=== PATIENT | female | born 1930 | race Caucasian/White ===

== ENCOUNTER 2017-01-18 16:24 | Observation (INO) ==
[2017-01-18 17:41] LABS: Basophils % 0.6 %; Eosinophils # 0.3 K/mcL (0.0-0.6); Eosinophils % 4.4 %; Hematocrit 34.4 % (35.3-44.9); Hemoglobin 11.5 g/dL (11.5-15.4); Immature Granulocytes % 0.2 % (0-4); Immature Platelets 3.2 % (1.1-6.1); Lymphocytes # 1.9 K/mcL (0.6-4.6); Lymphocytes % 30.7 %; Mean Corpuscular HGB Conc 33.4 g/dL (31.6-35.5); Mean Corpuscular Hemoglobin 31.4 pg (28.0-33.3); Mean Platelet Volume 10.2 fL (9.4-12.4); Monocytes # 0.5 K/mcL (0.0-1.3); Monocytes % 8.1 %; Neutrophils # 3.5 K/mcL (1.6-8.9); Platelet Count 255 K/mcL (140-400); Red Blood Count 3.66 M/mcL (3.82-4.97); Red Cell Distribution Width 12.2 % (11.5-14.5)
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
[2017-01-18 17:55] LABS: BUN/Creatinine Ratio 18 (6-26); Blood Urea Nitrogen 18 mg/dL (7-20); Calcium 9.1 mg/dL (8.6-10.8); Carbon Dioxide 27 mEq/L (19-29); Chloride 104 mEq/L (98-109); Glucose 96 mg/dL (70-99); Osmolality,Calculated 288 (280-300); Potassium 3.7 mEq/L (3.5-4.5); Sodium 138 mEq/L (136-145); eGFR For African Americans > 60 (> 60); eGFR For Non-African Americans 53 (> 60)
--- NOTE | 2017-01-18 18:41 | Emergency Department Note ---
START Narrative - START START: I did see the patient and spoke with her and she does have chest pain and shortness of breath that started this morning. I did review the EKG which shows a paced rhythm. The patient has a negative CT scan of the chest and her troponin and BNP are negative. Will be admitted for further cardiac evaluation. Does have significant risk. 1840 I examined this patient and my medical decision-making was reviewed with the SOLID DIE CUTTER/PA/Advanced Practice Nurse/Resident Physician. I agree with the documented findings, disposition and treatment plan as described except to the extent set forth below.
[2017-01-18] MEDS ORDERED: Aspirin 325 MG TABLET PO ONE (20:46)
[2017-01-18] MEDS ORDERED: Naloxone 0.4 MG/ML INJ IVP PRN (23:12)
[2017-01-18] MEDS ORDERED: Acetaminophen 325 MG TABLET PO PRN (23:12)
[2017-01-18] MEDS ORDERED: traMADol 50 MG TABLET PO PRN (23:17)
[2017-01-18] MEDS ORDERED: *HR* Morphine 2 MG/ML SYRINGE IVP PRN (23:17)
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
[2017-01-19 06:09] LABS: Chol/HDL Ratio 3.2 (0-4.9); Magnesium 1.8 mg/dL (1.6-2.6)
[2017-01-19 07:19] VITALS: BP 126/70
[2017-01-19] MEDS ORDERED: Aspirin 81 MG TAB.CHEW PO SCH (09:00)
[2017-01-19] MEDS ORDERED: VIT D PO SCH (09:00)
[2017-01-19] MEDS ORDERED: CALCIUM PO SCH (09:00)
[2017-01-19] MEDS ORDERED: Cholecalciferol (D-3) 1,000 UNIT TABLET PO SCH (09:00)
--- NOTE | 2017-01-19 10:09 | Discharge Summary ---
Date of Encounter: 01/19/17 Time of Encounter: 09:30 - Discharge Diagnosis (1) Atypical chest pain Priority: Primary Status: Ruled-out Comments: Atypical and reproducible with palpation. CTA negative. Troponins negative 3. No acute ECG changes. Patient stating she had been short of breath with exertion but denied this on day of discharge stating she was able to walk around the unit without any shortness of breath or pain. 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 Follow-up outpatient Qualifiers: Hypertension type: essential hypertension Qualified Code(s): I10 - Essential (primary) hypertension (4) GERD (gastroesophageal reflux disease) Priority: Secondary Status: Chronic Comments: Denied current symptoms Qualifiers: Esophagitis presence: esophagitis presence not specified Qualified Code(s) : K21.9 - Gastro-esophageal reflux disease without esophagitis (5) History of pacemaker Priority: Secondary Status: Chronic - Discharge Medications Home Medications: Cholecalciferol (D-3) [Vitamin D] 1,000 unit PO DAILY 07/13/16 [History] Eszopiclone [Lunesta] 1 mg PO HS PRN 07/13/16 [History] Nabumetone 750 mg PO BID 07/13/16 [History] Omeprazole 20 mg PO DAILY 07/13/16 [History] Pravastatin Sodium [Pravachol] 40 mg PO HS 07/13/16 [History] Quinapril HCl [Accupril] 10 mg PO HS 07/13/16 [History] Quinapril HCl [Accupril] 20 mg PO QAM 07/13/16 [History] Aspirin 81 mg PO DAILY 01/18/17 [History] Calcium Carbonate/Vitamin D3 [Calcium 500 + Vit D Caplet] 1 each PO DAILY [History] Allergies/Adverse Reactions: Allergies Penicillins Allergy (Verified 01/18/17 19:25) Hives Date of admission: 01/18/17 20:29 Primary care physician: Dex Cardona Discharging clinician: Rosina Polanco Anticipated date of discharge: 01/19/17 - Patient Status Disposition: Home, Self-Care Condition: Good Functional capacity at discharge: independent ambulation Overall status at discharge: patient is back to baseline - Discharge Instructions Follow Up With: Chelle Salinas DO [Primary Care Provider] - Additional Instructions: Follow-up with primary care provider within one to 2 weeks - Diet and Activity Activity: increase activity as tolerated Diet: low fat, low cholesterol, low salt diet Hospital course: Ms. Valerio is a 86 year old female with past medical history of hypertension, hyperlipidemia, LBBB with second-degree heart block status post pacemaker insertion. Patient presented to the emergency department after she woke up with sudden onset of lower, sternally located chest pain. She described it as sharp and continuous with radiation to her back, moderate to severe in intensity and worsened with breathing and not related to exertion. Patient denies shortness of breath, cough, abdominal pain, nausea or vomiting. Workup in the emergency department unremarkable. CTA negative for acute processes. Patient was admitted to the hospitalist service for further evaluation and management. Troponins negative 3. EKG revealing paced rhythm. Patient was initially anxious during her admission and became hypertensive. She quickly calmed and was normotensive on day of discharge. Her shortness of breath and pain had also nearly resolved prior to discharge. No indication for further ischemic cardiac workup during this admission. Patient was able to tolerate a regular diet and denied abdominal pain. She was discharged home in stable condition with close outpatient follow-up recommended. ITS Impressions Chest CTA 01/18/17 17:12 IMPRESSION: 1. No evidence of pulmonary embolic disease. 2. No acute pulmonary findings. D/ / Clay Pritchett MD / Clay Pritchett MD Interpreting Provider: Clay Pritchett MD - Time Spent with Patient Total time spent providing and/or coordinating discharge services: - Constitutional Vitals: Temp Pulse Resp BP Pulse Ox 98.0 F 71 16 126/70 93 01/19/17 07:18 01/19/17 07:18 01/19/17 07:18 01/19/17 07:18 01/19/17 07:18 General appearance: Present: A&O X 3, pleasant, no acute distress, answers questions appropriately - Head Head exam: Present: atraumatic, normocephalic - Eye Eye exam: Present: PERRL, conjuntiva pink, sclera anicteric Pupils: Present: PERRL - Neck Neck exam general surgery: Present: supple, trachea midline. Absent: lymphadenopathy - Respiratory Respiratory exam: Present: CTAB. Absent: accessory muscle use, decreased breath sounds, rales, respiratory distress, rhonchi, wheezes - Cardiovascular Cardiovascular exam: Present: RRR, +S1, +S2. Absent: diastolic murmur, gallop, rubs, systolic murmur - GI/Abdominal GI/Abdominal exam: Present: normal bowel sounds, soft, no peritoneal signs. Absent: distended, tenderness - Extremities Exam Extremities exam: Present: warm, radial pulses palpable and symetrical. Absent : calf tenderness, cyanotic, pedal edema - Neurological Exam Neurological exam: Present: alert, CN II-XII intact, normal gait, oriented X3, no focal deficits, strengths equal and symetr throughout. Absent: pronater drift, facial droop, speech deficit - Skin Skin exam: Present: dry, intact, normal color, warm - VTE Reasons for not Prescribing Prophylaxis: Treatment not Indicated - Low risk for VTE
--- NOTE | 2017-01-19 17:41 | Electrocardiograph Report ---
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
--- NOTE | 2017-01-19 17:43 | Electrocardiograph Report ---
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
== END 2017-01-19 10:58 | disposition home or self-care (01) ==
LOC: EMEROO 16:24 → 3BNU 16:24
PROVIDERS: ADMIT Internal Medicine; ATTEND Nurse Practitioner Family

== ENCOUNTER 2018-02-08 17:23 | Observation (INO) ==
--- NOTE | 2018-02-08 17:45 | Emergency Department Note ---
Disposition Clinical Impression: Chest pain Qualifiers: Chest pain type: unspecified Qualified Code(s): R07.9 - Chest pain, unspecified Disposition: Admitted As Inpatient Condition: Fair Instructions: Chest Pain (ED), Thoracic Pain (ED) Referrals: Chelle Salinas DO [Primary Care Provider] - Forms: ED Satisfaction Letter Chest Pain HPI - General Chief Complaint: ED Chest Pain Stated Complaint: Chest Pain Time Seen by Provider: 02/08/18 17:25 Vital Signs Reviewed: Yes Nursing Notes Reviewed: Yes - History of Present Illness HPI Narrative: Ms. Valerio is an 87-year-old female presenting to the emergency department today after sudden onset of chest pain that began approximately 2 hours ago while sitting at home. Chest pain is centralized, mid-sternal and radiates to her back; characterize his chest pain as sharp, stabbing, pressure. She denies diaphoresis, shortness of breath, lightheadedness. Denies nausea at onset of chest pain, but she did develop nausea later on. She thought her pain may be due to indigestion, but got no relief after taking antacid. She does not currently have chest discomfort, but she does continue to have back pain which has improved since onset. 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 She denies any history of CAD or HI in the past. - Related Data Home Medications Medication Instructions Recorded Confirmed Cholecalciferol (D-3) [Vitamin D] 1,000 unit PO DAILY 07/13/16 01/18/17 Eszopiclone [Lunesta] 1 mg PO HS PRN 07/13/16 01/18/17 Omeprazole 20 mg PO DAILY 07/13/16 01/18/17 Quinapril HCl [Accupril] 10 mg PO HS 07/13/16 01/18/17 Quinapril HCl [Accupril] 20 mg PO QAM 07/13/16 01/18/17 Aspirin 81 mg PO DAILY 01/18/17 01/18/17 Calcium Carbonate/Vitamin D3 1 each PO DAILY 01/18/17 01/18/17 [Calcium 500 + Vit D Caplet] Ferrous Sulfate [Iron] 325 mg PO DAILY 02/08/18 02/08/18 predniSONE [Prednisone] 7.5 mg PO DAILY 02/08/18 02/08/18 Allergies Allergy/AdvReac Type Severity Reaction Status Date / Time Penicillins Allergy Hives Verified 01/18/17 19:25 All systems ED: reviewed and negative except as stated. Review of Systems: As Per HPI Constitutional: Reports: as per HPI. Denies: fever, chills Eyes: Denies: vision change Cardiovascular: Reports: as per HPI, chest pain. Denies: palpitations, dyspnea on exertion, edema, syncope Respiratory: Reports: as per HPI. Denies: cough, dyspnea, wheezes Gastrointestinal: Reports: as per HPI, nausea. Denies: abdominal pain, vomiting , diarrhea, constipation Musculoskeletal: Reports: as per HPI, back pain (thoracic region) Neurological: Reports: as per HPI. Denies: headache, weakness, confusion Chest Pain PMH - Past Medical History Medical history: Reports: arthritis, coronary artery disease, GERD, hyperlipidemia, hypertension, other (2nd degree AV block) Surgical history: Reports: cholecystectomy, hip replacement, NELLY/BSO Psychiatric history: Reports: no psych history - Social History Smoking Status: Never smoker Alcohol use: Reports: none Drug use: Reports: none Physical Exam General: vital signs noted, appears uncomfortable, not diaphoretic Head: normocephalic; atraumatic Eyes: EOMI, PERRL, sclera anicteric Neck: supple, no lymphadenopathy Cardio: ventricular paced rhythm; regular rate; no murmurs, gallops, rubs; + S1/ S2 Pulm: CTAB, no wheezes/rhonchi/rales, normal respiratory effort Back: Normal on inspection, no beto tenderness, paraspinal thoracic region tender to palpation Abd: soft, nontender, no rebound/rigidity/guarding Neuro: no focal neurological deficits, no speech deficit, moves all extremities spontaneously Ext: no lower extremity edema; DP pulses present and equal bilaterally MSK: no visible deformities Psych: normal mood, normal affect, cooperative Skin: warm, dry, intact Course Vital Signs Temperature 98.1 F 02/08/18 17:24 Pulse Rate 74 02/08/18 17:24 Respiratory Rate 18 02/08/18 17:24 Blood Pressure 186/85 02/08/18 17:24 O2 Sat by Pulse Oximetry 95 02/08/18 17:24 Temperature 98.1 F 02/08/18 17:24 Pulse Rate 74 02/08/18 17:24 Respiratory Rate 18 02/08/18 17:24 Blood Pressure 186/85 02/08/18 17:24 O2 Sat by Pulse Oximetry 95 02/08/18 17:24 Oxygen Delivery Oxygen Delivery Room Air Chest Pain - MDM Narrative Medical decision making narrative: Patient has been chest pain-free throughout her time in the emergency department , she does report back pain however it is improved since onset. On arrival patient is afebrile, vital signs are stable, and saturating well on room air with normal respiratory effort. Troponin negative, CBC and BMP within normal limits. Elevated d-dimer of 1093. CXR is stable, pacemaker is in good position , lungs are clear without PTX or pleural fluid, no bony findings. CTA chest with contrast negative for evidence of PE or acute pulmonary abnormality. Discussed case with admitting hospitalist who accepted pt for admission for ACS rule out and for further care--this was discussed with pt and pt's son, both agreed to admission for observation. - Medical Records Medical records reviewed: Yes I reviewed the patient's medical records. - Lab Data Lab results reviewed: Yes I reviewed the patient's lab results. Result diagrams: 02/08/18 17:45 02/08/18 17:45 Lab Results 02/08/18 02/08/18 02/08/18 Range/Units 17:45 17:45 17:45 WBC 8.3 (4.3-11.1) K/mcL RBC 4.18 (3.82-4.97) M/mcL Hgb 13.4 (11.5-15.4) g/dL Hct 39.6 (35.3-44.9) % MCV 94.7 (83.0-100.0) fL MCH 32.1 (28.0-33.3) pg MCHC 33.8 (31.6-35.5) g/dL RDW 12.9 (11.5-14.5) % Plt Count 249 (140-400) K/mcL MPV 10.5 (9.4-12.4) fL Immature Gran % 0.2 (0-4) % Seg Neutrophils % 70.4 % Lymphocytes % 21.5 % Monocytes % 6.9 % Eosinophils % 0.6 % Basophils % 0.4 % Neutrophils # 5.8 (1.6-8.9) K/mcL Lymphocytes # 1.8 (0.6-4.6) K/mcL Monocytes # 0.6 (0.0-1.3) K/mcL Eosinophils # 0.1 (0.0-0.6) K/mcL Basophils # 0.0 (0.0-0.2) K/mcL D-Dimer 1093 H (0-500) ng/mLFEU Sodium 138 (136-145) mEq/L Potassium 3.8 (3.5-5.1) mEq/L Chloride 105 (98-107) mEq/L Carbon Dioxide 25 (23-29) mEq/L BUN 22 (8-23) mg/dL Creatinine 0.91 (0.60-1.20) mg/dL Est GFR ( Amer) > 60 (> 60) Est GFR (Non-Af Amer) 59 L (> 60) BUN/Creatinine Ratio 24 (6-26) Glucose 102 (70-105) mg/dL Calculated Osmolality 290 (280-300) Calcium 9.8 (8.6-10.3) mg/dL Troponin I < 0.03 (< 0.04) ng/mL - Radiology Data Radiology results reviewed: Yes I reviewed the patient's radiology results. - EKG Data EKG attestation: Yes I reviewed and interpreted this EKG. Rate: normal Rhythm: other (ventricular pacing) Interpretation: other (no acute ST segment elevations or depressions)
--- NOTE | 2018-02-08 17:55 | Emergency Department Note ---
START Narrative - START START: I examined this patient and my medical decision-making was reviewed with the Resident Physician. I agree with the documented findings, disposition and treatment plan as described except to the extent set forth below. 87 showed female presents emergency room for chest pain and back pain. Symptoms started approximately 4-5 hours ago while sitting at home. States she had some chest discomfort the midsternal region that radiated to her back. She states she does not really have much chest discomfort at this time but states more of just being some middle back pain. She denies trauma. States she felt slightly nauseated earlier but had no vomiting or any diaphoresis or shortness of breath. She has no history of coronary disease. She does have a history of a left bundle-branch block and a paced rhythm. She does have a pacemaker. She states she rates her pain approximate 4 out of 10. No other complaints at this time. We will workup for ACS as well as any aorta problem. Chest x-ray as well.
[2018-02-08 18:09] LABS: Basophils % 0.4 %; Eosinophils # 0.1 K/mcL (0.0-0.6); Eosinophils % 0.6 %; Hematocrit 39.6 % (35.3-44.9); Hemoglobin 13.4 g/dL (11.5-15.4); Immature Granulocytes % 0.2 % (0-4); Lymphocytes # 1.8 K/mcL (0.6-4.6); Lymphocytes % 21.5 %; Mean Corpuscular HGB Conc 33.8 g/dL (31.6-35.5); Mean Corpuscular Hemoglobin 32.1 pg (28.0-33.3); Mean Corpuscular Volume 94.7 fL (83.0-100.0); Mean Platelet Volume 10.5 fL (9.4-12.4); Monocytes # 0.6 K/mcL (0.0-1.3); Monocytes % 6.9 %; Neutrophils # 5.8 K/mcL (1.6-8.9); Platelet Count 249 K/mcL (140-400); Red Blood Count 4.18 M/mcL (3.82-4.97); Red Cell Distribution Width 12.9 % (11.5-14.5); Segmented Neutrophils % 70.4 %
[2018-02-08 18:26] LABS: BUN/Creatinine Ratio 24 (6-26); Blood Urea Nitrogen 22 mg/dL (8-23); Calcium 9.8 mg/dL (8.6-10.3); Carbon Dioxide 25 mEq/L (23-29); Chloride 105 mEq/L (98-107); Glucose 102 mg/dL (70-105); Osmolality,Calculated 290 (280-300); Potassium 3.8 mEq/L (3.5-5.1); Sodium 138 mEq/L (136-145); Troponin I < 0.03 ng/mL (< 0.04); eGFR For African Americans > 60 (> 60); eGFR For Non-African Americans 59 (> 60)
[2018-02-08] MEDS ORDERED: Isovue-370 500 ML INFUS..BTL IV ONE (18:26)
[2018-02-08] MEDS ORDERED: Naloxone 0.4 MG/ML INJ IVP PRN (20:50)
[2018-02-08] MEDS ORDERED: Acetaminophen 325 MG TABLET PO PRN (20:50)
--- NOTE | 2018-02-08 22:37 | Internal Med History&Physical ---
Date of Encounter: 02/08/18 Time of Encounter: 20:00 Internal Medicine - H&P: HPI Chief complaint: Chest pain Admitted From: Home Plans for Post Hospital Care: Home History of present illness: Ms. Valerio is a 87 year old female present to ER for chest pain since this afternoon. Past medical history is significant for AV block S/P PPM, hypertension, arthritis on chronic prednisone use. Patient said she started to have chest pain this afternoon when she is at rest. The pain is located on lower mid chest, sharp, 9-10 out of 10, radiated to the back. Patient denies shortness of breath. Patient has mild nausea, no vomiting, no diaphoresis. Patient to called EMS. Patient was sent to ER and when she get to ER the chest pain has resolved spontaneously. The patient still complaining of 4-5 out of 10 back pain. In the emergency room, she was found having elevated d-dimer. CTA has been done, unremarkable. Patient has unremarkable EKG and negative first troponin. She was admitted to rule out ACS. Past Med Surg Social Fam HX - Past Medical History Medical history: arthritis, coronary artery disease, GERD, hyperlipidemia, hypertension, other (2nd degree AV block) Psychiatric history: no psych history - Past Surgical History Surgical History: cholecystectomy, hip replacement, NELLY/BSO - Social History Smoking Status: Never smoker Smokeless Tobacco Status: No Alcohol use: none Drug use: none - Family History Father Hx Family Cardiac Disorders: Yes (AL) Hx Family Respiratory Disorders: No Hx Family Cancer: Yes (Colon) Hx Family GI Disorders: No Hx Family Endocrine Disorder: No Hx Family Neuromuscular Disorders: No Hx Family Neurologic Disorders: Yes (Parkinson's) Hx Family HEENT Disorders: No Hx Family Autoimmune Disorders: No Internal Medicine - H&P: Meds Cholecalciferol (D-3) [Vitamin D] 1,000 unit PO DAILY 07/13/16 [History] Eszopiclone [Lunesta] 1 mg PO HS PRN 07/13/16 [History] Omeprazole 20 mg PO DAILY 07/13/16 [History] Quinapril HCl [Accupril] 10 mg PO HS 07/13/16 [History] Quinapril HCl [Accupril] 20 mg PO QAM 07/13/16 [History] Aspirin 81 mg PO DAILY 01/18/17 [History] Calcium Carbonate/Vitamin D3 [Calcium 500 + Vit D Caplet] 1 each PO DAILY [History] Ferrous Sulfate [Iron] 325 mg PO DAILY 02/08/18 [History] predniSONE [Prednisone] 7.5 mg PO DAILY 02/08/18 [History] 3 Allergy/AdvReac Type Severity Reaction Status Date / Time Penicillins Allergy Hives Verified 01/18/17 19:25 All Systems PM: A 10-system review of systems was performed and is negative for pertinent findings except as documented above in the HPI. - Constitutional Vitals: Temp Pulse Resp BP Pulse Ox 98.1 F 68 16 190/80 94 02/08/18 17:24 02/08/18 21:50 02/08/18 20:53 02/08/18 21:50 02/08/18 21:50 General appearance: Present: A&O X 3, no acute distress, answers questions appropriately - Head Head exam: Present: atraumatic, normocephalic - Eye Eye exam: Present: PERRL, conjuntiva pink, sclera anicteric Pupils: Present: PERRL - Neck Neck exam general surgery: Present: supple, trachea midline. Absent: lymphadenopathy - Respiratory Respiratory exam: Present: chest wall tenderness (Mild lower sternal tenderness) , CTAB. Absent: accessory muscle use, rales, rhonchi, wheezes - Cardiovascular Cardiovascular exam: Present: RRR, +S1, +S2. Absent: diastolic murmur, gallop, rubs, systolic murmur - GI/Abdominal GI/Abdominal exam: Present: normal bowel sounds, soft, no peritoneal signs. Absent: distended, tenderness - Extremities Exam Extremities exam: Present: warm, radial pulses palpable and symmetrical. Absent : calf tenderness, cyanotic, pedal edema - Neurological Exam Neurological exam: Present: CN II-XII intact, oriented X3, no focal deficits. Absent: pronater drift, facial droop, speech deficit - Skin Skin exam: Present: dry, intact Internal Med - H&P Results - Labs CBC & Chem 7: 02/08/18 17:45 02/08/18 17:45 - Assessment and plan (1) Chronic steroid use Current Visit: Yes Status: Acute Assessment and plan: Patient is not on acute stress. Continue home med dose of prednisone (2) Chest pain Current Visit: Yes Status: Acute Assessment and plan: Patient has chest pain which has resolved already. Patient has chest wall tenderness. Probably skeletal muscular pain. However, patient has hypertension and hyperlipidemia. Need to rule out ACS. - Continuous cardiac monitoring - Track 3 sets of troponin - I have discussed the stress test option, patient would like to see her cardiology first and decide. If she need one, she will do as outpatient. Qualifiers: Chest pain type: intercostal pain Qualified Code(s): R07.82 - Intercostal pain (3) GERD (gastroesophageal reflux disease) Current Visit: No Status: Chronic Assessment and plan: Continue home medications Qualifiers: Esophagitis presence: esophagitis presence not specified Qualified Code(s) : K21.9 - Gastro-esophageal reflux disease without esophagitis (4) History of pacemaker Current Visit: No Status: Chronic Assessment and plan: Continue close monitoring (5) Hypertension Current Visit: No Status: Chronic Assessment and plan: Continue home medications. Hydralazine IV when necessary Qualifiers: Hypertension type: essential hypertension Qualified Code(s): I10 - Essential (primary) hypertension - Time Spent With Patient Total time spent is greater than 50% in coordination of care (as documented) at patient's floor/unit and/or counseling patient: 40 minutes Greater than 35 minutes
[2018-02-09 05:46] LABS: Basophils % 0.6 %; Eosinophils # 0.2 K/mcL (0.0-0.6); Eosinophils % 2.9 %; Hematocrit 39.9 % (35.3-44.9); Hemoglobin 13.2 g/dL (11.5-15.4); Immature Granulocytes % 0.3 % (0-4); Lymphocytes # 2.5 K/mcL (0.6-4.6); Lymphocytes % 37.8 %; Mean Corpuscular HGB Conc 33.1 g/dL (31.6-35.5); Mean Corpuscular Hemoglobin 31.8 pg (28.0-33.3); Mean Corpuscular Volume 96.1 fL (83.0-100.0); Mean Platelet Volume 10.8 fL (9.4-12.4); Monocytes # 0.6 K/mcL (0.0-1.3); Monocytes % 8.6 %; Neutrophils # 3.3 K/mcL (1.6-8.9); Platelet Count 243 K/mcL (140-400); Red Blood Count 4.15 M/mcL (3.82-4.97); Red Cell Distribution Width 13.1 % (11.5-14.5); Segmented Neutrophils % 49.8 %
[2018-02-09 06:07] LABS: Troponin I < 0.03 ng/mL (< 0.04)
[2018-02-09 06:09] LABS: BUN/Creatinine Ratio 28 (6-26); Blood Urea Nitrogen 26 mg/dL (8-23); Calcium 9.4 mg/dL (8.6-10.3); Carbon Dioxide 27 mEq/L (23-29); Chloride 107 mEq/L (98-107); Glucose 95 mg/dL (70-105); Magnesium 2.2 mg/dL (1.6-2.6); Osmolality,Calculated 301 (280-300); Potassium 3.7 mEq/L (3.5-5.1); Sodium 143 mEq/L (136-145); eGFR For African Americans > 60 (> 60); eGFR For Non-African Americans 57 (> 60)
[2018-02-09] MEDS ORDERED: Regadenoson 0.4 MG/5 ML SYRINGE IVP ONE (08:57)
[2018-02-09] MEDS ORDERED: predniSONE 5 MG TABLET PO SCH (09:00)
[2018-02-09] MEDS ORDERED: Cholecalciferol (D-3) 1,000 UNIT TABLET PO SCH (09:00)
[2018-02-09] MEDS ORDERED: Lisinopril 20 MG TABLET PO SCH (09:00)
[2018-02-09] MEDS ORDERED: Aspirin 81 MG TAB.CHEW PO SCH (09:00)
--- NOTE | 2018-02-09 09:01 | Internal Med Progress Note ---
Date of Encounter: 02/09/18 Time of Encounter: 07:55 - Assessment and plan (1) Hypertension Current Visit: Yes Status: Chronic Assessment and plan: Chronic. Well controlled. Continue home medications. Qualifiers: Hypertension type: essential hypertension Qualified Code(s): I10 - Essential (primary) hypertension (2) GERD (gastroesophageal reflux disease) Current Visit: Yes Status: Chronic Assessment and plan: Chronic. Continue omeprazole after discharge. Qualifiers: Esophagitis presence: esophagitis presence not specified Qualified Code(s) : K21.9 - Gastro-esophageal reflux disease without esophagitis (3) History of pacemaker Current Visit: Yes Status: Chronic Assessment and plan: Patient pacemaker placed in June, due to left bundle branch block. Patient reports several episodes of near syncope and syncope. Continue to follow with cardiology. (4) Chest pain Current Visit: Yes Status: Acute Assessment and plan: Pt reported approximately 2 hours of sharp retrosternal chest pain, heaviness, with radiation to mid back. She denies SOB, diaphoresis, does recall feeling nauseated. Pain resolved spontaneously and she remains pain free. Pain is not reproducible. Pt also has hiatal hernia, which could cause some of the same symptoms. Troponins are negative. Elevated d-dimer on admission, chest CTA negative for PE or other acute process or disease. Last echo was 07/02 that showed an LVEF of 60-65%, mild asymmetric LV septal hypertrophy, mild LV DD, mild TR, mild PA, and pt has no recent stress test. Continue telemetry Stress and echo are pending Patient is nothing by mouth Return aspirin for pain. Continue aspirin and antihypertensives Qualifiers: Chest pain type: intercostal pain Qualified Code(s): R07.82 - Intercostal pain (5) Chronic steroid use Current Visit: Yes Status: Acute Assessment and plan: Continue home med dose of prednisone (6) DVT prophylaxis Current Visit: Yes Status: Acute Assessment and plan: Patient is observation status and is ambulatory. Encourage ambulation with assistance. - Time Spent With Patient Total time spent is greater than 50% in coordination of care (as documented) at patient's floor/unit and/or counseling patient: less than 15 minutes - Subjective Interval history: Pt was seen and assessed at 0755. She is alert, awake, oriented. Patient reports approximately 2 hours of substernal heaviness and "intense sharp" pain. She reports that the pain resolved spontaneously. She reports that the pain in her chest radiated straight through to her back and that the chest pain resolved prior to the back pain. 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 Patient reports that she sees cardiology here. She denies chest pain or shortness of breath currently. She denies any nausea, shortness of breath, diaphoresis, no vomiting. He denies any headache or vision changes. She reports that she does have peripheral edema at times, it is normal for her and it resolves her night at rest. - Constitutional Vitals: Temp Pulse Resp BP Pulse Ox 98.1 F 60 18 144/73 96 02/09/18 06:53 02/09/18 06:53 02/09/18 06:53 02/09/18 06:53 02/09/18 06:53 General appearance: Present: cooperative, A&O X 3, pleasant, no acute distress, answers questions appropriately - Head Head exam: Present: atraumatic, normal inspection, normocephalic - Eye Eye exam: Present: normal appearance, conjuntiva pink, sclera anicteric - Neck Neck exam general surgery: Present: supple, trachea midline. Absent: lymphadenopathy, tenderness - Respiratory Respiratory exam: Present: CTAB. Absent: accessory muscle use, chest wall tenderness, rales, respiratory distress, rhonchi, wheezes - Cardiovascular Cardiovascular exam: Present: RRR, +S1, +S2. Absent: diastolic murmur, gallop, rubs, systolic murmur - GI/Abdominal GI/Abdominal exam: Present: normal bowel sounds, soft, tenderness. Absent: distended, hepatomegaly Additional comments: She reports mild tenderness with palpation epigastric area. - Extremities Exam Extremities exam: Present: normal capillary refill, normal inspection, warm, radial pulses palpable and symmetrical. Absent: calf tenderness, cyanotic, joint swelling, pedal edema, tenderness - Neurological Exam Neurological exam: Present: alert, oriented X3, no focal deficits. Absent: altered, facial droop, speech deficit - Skin Skin exam: Present: dry, intact, normal color, warm. Absent: rash Internal Medicine: Result - Labs CBC & Chem 7: 02/09/18 04:45 02/09/18 04:45 Labs: Short CBC 02/09/18 Range/Units 04:45 WBC 6.6 (4.3-11.1) K/mcL Hgb 13.2 (11.5-15.4) g/dL Hct 39.9 (35.3-44.9) % Plt Count 243 (140-400) K/mcL Neutrophils # 3.3 (1.6-8.9) K/mcL BMP 02/09/18 04:45 Sodium 143 Potassium 3.7 Chloride 107 Carbon Dioxide 27 BUN 26 H Creatinine 0.93 Glucose 95 Calcium 9.4 Cardiac Enzymes 02/08/18 02/09/18 Range/Units 22:19 04:45 Troponin I < 0.03 < 0.03 (< 0.04) ng/mL - ABG Interpretation ABG results: PT/INR, D-dimer D-Dimer 1093 ng/mLFEU (0-500) H 02/08/18 17:45 Consult Discharge Plan - Plan Referrals: Chelle Salinas DO [Primary Care Provider] -
--- NOTE | 2018-02-09 15:16 | Discharge Summary ---
- NOTES TO OUTPATIENT PROVIDER Notes to Outpatient Provider: Pt was admitted for chest pain that resolved on it 's own. Pain radiated to back and lasted about an hour longer than chest pain. EKG without ST changes. Troponins negative. Orders not resulted at time of discharge: Pending orders 02/09/18 08:18 NM robin perf SPECT multi [NM] Routine Date of Encounter: 02/09/18 Time of Encounter: 07:55 - Discharge Diagnosis (1) Chest pain Priority: Primary Status: Acute Assessment and Plan: Patient reports 2 hour history of retrosternal, "intense",heavy and sharp chest pain prior to arrival. Pain radiated to back. She reported nausea, denied shortness of breath or diaphoresis. Chest pain was relieved prior to back pain. Both chest and back pain resolved spontaneously. Patient had a pacemaker placed in June, for left bundle branch block. Last echocardiogram at same time showed normal LV systolic function EF 60-65%, mild asymmetric LV septal hypertrophy mild LV DD mild TR mild CT. Stress test today showed perfusion imaging negative for ischemia or infarct with gated EF of greater than 70%. Troponins negative, elevated d-dimer on arrival. Chest CTA negative for PE or acute pulmonary abnormality. Patient does have small hiatal hernia, could be one source of chest pain. Recommend that pt follow up with cardiology, she already sees [facility], as well as PCP for referral to GI to evaluate GERD and hernia. Pt remains painfree and wants to go home. Qualifiers: Chest pain type: intercostal pain Qualified Code(s): R07.82 - Intercostal pain (2) Hypertension Priority: Secondary Status: Chronic Assessment and Plan: Chronic. Well controlled. Continue home medications. Qualifiers: Hypertension type: essential hypertension Qualified Code(s): I10 - Essential (primary) hypertension (3) GERD (gastroesophageal reflux disease) Priority: Secondary Status: Chronic Assessment and Plan: Chronic. Continue PPI. Pt also has hiatal hernia, could be cause of chest pain with associated GERD. Follow with PCP. Qualifiers: Esophagitis presence: esophagitis presence not specified Qualified Code(s) : K21.9 - Gastro-esophageal reflux disease without esophagitis (4) History of pacemaker Priority: Secondary Status: Chronic Assessment and Plan: Patient pacemaker placed in June, due to left bundle branch block. Patient reports several episodes of near syncope and syncope. Continue to follow with cardiology. (5) Chronic steroid use Priority: Secondary Status: Acute Assessment and Plan: Continue home dose of medications. (6) DVT prophylaxis Priority: Secondary Status: Acute Assessment and Plan: Patient is observation status and is ambulatory. Encourage ambulation with assistance. Hospital course: Ms. Valerio is a 87 year old female Discharge discussed with: patient - Time Spent with Patient Total time spent providing and/or coordinating discharge services: Less than 30 minutes - Discharge Medications Home Medications: Cholecalciferol (D-3) [Vitamin D] 1,000 unit PO DAILY 07/13/16 [History] Eszopiclone [Lunesta] 1 mg PO HS PRN 07/13/16 [History] Omeprazole 20 mg PO DAILY 07/13/16 [History] Quinapril HCl [Accupril] 10 mg PO HS 07/13/16 [History] Quinapril HCl [Accupril] 20 mg PO QAM 07/13/16 [History] Aspirin 81 mg PO DAILY 01/18/17 [History] Calcium Carbonate/Vitamin D3 [Calcium 500 + Vit D Caplet] 1 each PO DAILY [History] Ferrous Sulfate [Iron] 325 mg PO DAILY 02/08/18 [History] predniSONE [Prednisone] 7.5 mg PO DAILY 02/08/18 [History] Allergies/Adverse Reactions: 3 Allergy/AdvReac Type Severity Reaction Status Date / Time Penicillins Allergy Hives Verified 01/18/17 19:25 Date of admission: 02/08/18 21:57 Primary care physician: Dex Cardona Discharging clinician: Justyna Babin Anticipated date of discharge: 02/09/18 - Constitutional Vitals: Temp Pulse Resp BP Pulse Ox 97.7 F 63 17 177/81 93 02/09/18 12:50 02/09/18 12:50 02/09/18 12:50 02/09/18 12:50 02/09/18 12:50 General appearance: Present: cooperative, A&O X 3, pleasant, no acute distress, answers questions appropriately - Head Head exam: Present: atraumatic, normal inspection, normocephalic - Eye Eye exam: Present: normal appearance, conjuntiva pink, sclera anicteric - Neck Neck exam general surgery: Present: supple, trachea midline. Absent: lymphadenopathy, tenderness - Respiratory Respiratory exam: Present: CTAB. Absent: accessory muscle use, decreased breath sounds, rales, rhonchi, wheezes - Cardiovascular Cardiovascular exam: Present: RRR, +S1, +S2. Absent: diastolic murmur, gallop, rubs, systolic murmur - GI/Abdominal GI/Abdominal exam: Present: normal bowel sounds, soft. Absent: distended, hepatomegaly, tenderness - Extremities Exam Extremities exam: Present: normal capillary refill, normal inspection, warm, radial pulses palpable and symmetrical. Absent: calf tenderness, cyanotic, pedal edema, tenderness - Neurological Exam Neurological exam: Present: alert, oriented X3, no focal deficits. Absent: facial droop, speech deficit - Skin Skin exam: Present: dry, intact, normal color, warm. Absent: rash - Patient Status Disposition: Home, Self-Care Condition: Good Functional capacity at discharge: independent ambulation Overall status at discharge: patient is back to baseline - Discharge Instructions Follow Up With: Chelle Salinas DO [Primary Care Provider] - Additional Instructions: Please follow up with your PCP and cardiology Return to the ER as needed for any other problems or concerns, or if your symptoms return or worsen. Take your medications as directed and return to your normal diet and activities as tolerated. - Diet and Activity Activity: increase activity as tolerated Diet: advance to your usual diet
[2018-02-09 16:27] VITALS: BP 134/74
--- NOTE | 2018-02-12 11:39 | Electrocardiograph Report ---
[address] [address] Test Date: 2018-02-08 Pat Name: Lizette Valerio Department: 103 Room: 3B Gender: F Improvement Coordinator: [facility] : 1930 Requested By: Leyda York Order Number: [id number] Reading MD: Nasir Graves Measurements Intervals [place] Rate: 76 P: 59 LA: 170 QRS: -60 QRSD: 137 T: 95 QT: 405 QTc: 435 Interpretive Statements ELECTRONIC VENTRICULAR PACEMAKER ABNORMAL RHYTHM ECG Electronically Signed On 02-12-2018 11:37:57 EDT by Nasir Graves
== END 2018-02-09 17:25 | disposition home or self-care (01) ==
LOC: 3BNU 17:23 → EMEROO 17:23 → 3BNU 22:15
PROVIDERS: ADMIT Internal Medicine; ATTEND Internal Medicine

== ENCOUNTER 2021-10-23 17:21 | Inpatient (IN) ==
[2021-10-23] MEDS ORDERED: Acetaminophen 325 MG TABLET PO ONE (17:52)
[2021-10-23 18:20] LABS: Basophils % 0.3 %; Eosinophils % 0.1 %; Immature Granulocytes % 0.6 % (0-4); Lymphocytes # 1.2 K/mcL (0.6-4.6); Lymphocytes % 9.2 %; Mean Corpuscular HGB Conc 33.3 g/dL (31.6-35.5); Mean Corpuscular Hemoglobin 31.2 pg (28.0-33.3); Mean Corpuscular Volume 93.6 fL (83.0-100.0); Mean Platelet Volume 10.1 fL (9.4-12.4); Monocytes # 1.4 K/mcL (0.0-1.3); Monocytes % 10.6 %; Neutrophils # 10.7 K/mcL (1.6-8.9); Platelet Count 244 K/mcL (140-400); Red Blood Count 4.81 M/mcL (3.82-4.97); Red Cell Distribution Width 12.2 % (11.5-14.5); Segmented Neutrophils % 79.2 %; White Blood Count 13.5 K/mcL (4.3-11.1)
[2021-10-23 18:25] LABS: VBG HCO3 25 mEq/L (21-27); VBG PCO2 38 mmHg (41-51); VBG PH 7.42 pH Units (7.32-7.42); VBG PO2 54 mmHg (25-50)
[2021-10-23 18:28] LABS: INR 1.1; Prothrombin Time 11.8 Seconds (9.4-12.1)
[2021-10-23 18:43] LABS: Bilirubin,Urine Negative (Negative); Blood,Urine Trace (Negative); Clarity,Urine Clear (Clear); Color,Urine Light-Yellow (Yellow); Glucose,Urine (UA) Normal (Normal); Ketones,Urine Negative (Negative); Leukocyte Esterase,Urine Large (Negative); Mucus,Urine Few per lpf (None-Few); Nitrite,Urine Negative (Negative); Protein,Urine 50 mg/dL (Neg-Trace); Specific Gravity,Urine 1.019 (1.010-1.025); Squamous Epithelial Cell,Urine Few per hpf (None-Few); Urobilinogen,Urine Normal (Normal); WBC,Urine 30-50 per hpf (0-3)
[2021-10-23 18:48] LABS: Alanine Aminotransferase 25 Units/L (7-52); Albumin/Globulin Ratio 1.4 (1.1-2.2); Alkaline Phosphatase 71 Units/L (34-104); Aspartate Amino Transferase 30 Units/L (13-39); BUN/Creatinine Ratio 15 (6-26); Bilirubin,Direct 0.1 mg/dL (0.0-0.2); Bilirubin,Indirect 0.7 mg/dL (0.0-1.0); Bilirubin,Total 0.8 mg/dL (0.3-1.0); Blood Urea Nitrogen 12 mg/dL (8-23); Calcium 8.9 mg/dL (8.6-10.3); Carbon Dioxide 23 mEq/L (23-29); Chloride 96 mEq/L (98-107); Globulin 2.9 g/dL (2.4-3.5); Glucose 99 mg/dL (70-105); Lipase 15 Units/L (11-82); Magnesium 1.7 mg/dL (1.6-2.6); Osmolality,Calculated 268 (280-300); Potassium 3.6 mEq/L (3.5-5.1); Sodium 129 mEq/L (136-145); Total Protein 6.9 g/dL (6.4-8.9); eGFR For African Americans > 60 (> 60); eGFR For Non-African Americans > 60 (> 60)
[2021-10-23 18:49] LABS: Troponin I < 0.03 ng/mL (< 0.04)
[2021-10-23] MEDS ORDERED: Cefepime HCl 1,000 MG in 0.9 % Sodium Chloride Mini Bag 100 ML IVPB ONE (19:40)
[2021-10-23] MEDS ORDERED: Naloxone 0.4 MG/ML INJ IVP PRN (20:01)
[2021-10-23 20:15] LABS: Influenza A PCR Negative (Negative); Influenza B PCR Negative (Negative); Resp. Syncytial Virus PCR Negative (Negative)
[2021-10-23 20:26] LABS: SARS-CoV-2 by PCR (In House) Positive (Negative)
[2021-10-23] MEDS ORDERED: Ibuprofen 600 MG TABLET PO ONE (21:33)
[2021-10-24] MEDS ORDERED: Chloraseptic Spray 177 ML BOTTLE MM PRN (01:37)
[2021-10-24] MEDS ORDERED: Saliva Stimulant 44.3ml BOTTLE PO PRN (01:37)
[2021-10-24] MEDS: Ipratropium 1 PUFF INHALER IH SCH ×4 (04:07→20:37)
[2021-10-24] MEDS ORDERED: 0.9 % Sodium Chloride 1,000 ML IVC SCH ×2 (05:45)
[2021-10-24 06:51] LABS: Basophils % 0.2 %; Eosinophils # 0.1 K/mcL (0.0-0.6); Eosinophils % 0.4 %; Hematocrit 44.3 % (35.3-44.9); Hemoglobin 14.8 g/dL (11.5-15.4); Immature Granulocytes % 0.4 % (0-4); Lymphocytes # 1.4 K/mcL (0.6-4.6); Lymphocytes % 10.4 %; Mean Corpuscular HGB Conc 33.4 g/dL (31.6-35.5); Mean Corpuscular Hemoglobin 31.7 pg (28.0-33.3); Mean Corpuscular Volume 94.9 fL (83.0-100.0); Mean Platelet Volume 10.5 fL (9.4-12.4); Monocytes # 1.5 K/mcL (0.0-1.3); Monocytes % 10.8 %; Neutrophils # 10.5 K/mcL (1.6-8.9); Platelet Count 237 K/mcL (140-400); Prothrombin Time 11.6 Seconds (9.4-12.1); Red Blood Count 4.67 M/mcL (3.82-4.97); Red Cell Distribution Width 12.4 % (11.5-14.5); Segmented Neutrophils % 77.8 %; White Blood Count 13.4 K/mcL (4.3-11.1)
[2021-10-24 07:08] LABS: Alanine Aminotransferase 33 Units/L (7-52); Albumin 3.9 g/dL (3.5-5.7); Albumin/Globulin Ratio 1.4 (1.1-2.2); Alkaline Phosphatase 74 Units/L (34-104); Aspartate Amino Transferase 35 Units/L (13-39); BUN/Creatinine Ratio 18 (6-26); Blood Urea Nitrogen 14 mg/dL (8-23); Calcium 8.6 mg/dL (8.6-10.3); Carbon Dioxide 23 mEq/L (23-29); Chloride 95 mEq/L (98-107); Globulin 2.8 g/dL (2.4-3.5); Glucose 113 mg/dL (70-105); Magnesium 1.8 mg/dL (1.6-2.6); Osmolality,Calculated 265 (280-300); Phosphorous 2.2 mg/dL (2.7-4.5); Potassium 3.7 mEq/L (3.5-5.1); Sodium 127 mEq/L (136-145); Total Protein 6.7 g/dL (6.4-8.9); eGFR For African Americans > 60 (> 60); eGFR For Non-African Americans > 60 (> 60)
[2021-10-24] MEDS: Artificial Tears SOLN 15 ML BOTTLE BOTH EYES SCH ×2 (08:15→20:25)
[2021-10-24] MEDS: cefTRIAXone 1,000 MG in 0.9 % Sodium Chloride Mini Bag 100 ML IVPB SCH (08:16)
[2021-10-24] MEDS: Chlorhexidine Rinse 15 ML MOUTHWASH MM SCH ×2 (08:16→20:25)
[2021-10-24] MEDS: Cholecalciferol (D-3) 1,000 UNIT (25MCG) TABLET PO SCH (08:16)
[2021-10-24] MEDS: Multivit/Ca/Min/Fe/FA 1 TAB TABLET PO SCH (08:16)
[2021-10-24] MEDS: Acetaminophen 325 MG TABLET PO PRN (14:32)
[2021-10-24] MEDS ORDERED: QUINAPRIL HCL 10 MG PO SCH ×2 (20:00→21:00)
[2021-10-24] MEDS: Melatonin 3 MG TABLET PO PRN (20:25)
[2021-10-25] MEDS: Ipratropium 1 PUFF INHALER IH SCH ×4 (04:09→20:29)
[2021-10-25] MEDS: *HR* Enoxaparin 40 MG/0.4 ML SYRINGE SQ SCH (04:57)
[2021-10-25] MEDS: cefTRIAXone 1,000 MG in 0.9 % Sodium Chloride Mini Bag 100 ML IVPB SCH (09:45)
[2021-10-25] MEDS: Cyanocobalamin (B-12) 1,000 MCG TABLET PO SCH (09:46)
[2021-10-25] MEDS: Chlorhexidine Rinse 15 ML MOUTHWASH MM SCH ×2 (09:46→20:26)
[2021-10-25] MEDS: Artificial Tears SOLN 15 ML BOTTLE BOTH EYES SCH ×2 (09:47→20:31)
[2021-10-25] MEDS: Aspirin 81 MG TAB.CHEW PO SCH (09:47)
[2021-10-25] MEDS: Cholecalciferol (D-3) 1,000 UNIT (25MCG) TABLET PO SCH ×2 (09:47→09:48)
[2021-10-25] MEDS: Multivit/Ca/Min/Fe/FA 1 TAB TABLET PO SCH (09:47)
[2021-10-25 11:49] LABS: Basophils % 0.2 %; Eosinophils % 0.1 %; Hematocrit 45.4 % (35.3-44.9); Hemoglobin 15.4 g/dL (11.5-15.4); Immature Granulocytes % 0.4 % (0-4); Lymphocytes # 1.3 K/mcL (0.6-4.6); Lymphocytes % 10.7 %; Mean Corpuscular HGB Conc 33.9 g/dL (31.6-35.5); Mean Corpuscular Hemoglobin 31.7 pg (28.0-33.3); Mean Corpuscular Volume 93.4 fL (83.0-100.0); Monocytes # 0.8 K/mcL (0.0-1.3); Monocytes % 6.9 %; Platelet Count 281 K/mcL (140-400); Red Blood Count 4.86 M/mcL (3.82-4.97); Red Cell Distribution Width 12.2 % (11.5-14.5); Segmented Neutrophils % 81.7 %; White Blood Count 12.3 K/mcL (4.3-11.1)
[2021-10-25 12:07] LABS: BUN/Creatinine Ratio 14 (6-26); Blood Urea Nitrogen 9 mg/dL (8-23); Calcium 8.9 mg/dL (8.6-10.3); Carbon Dioxide 23 mEq/L (23-29); Chloride 97 mEq/L (98-107); Glucose 116 mg/dL (70-105); Osmolality,Calculated 272 (280-300); Potassium 3.7 mEq/L (3.5-5.1); Sodium 131 mEq/L (136-145); eGFR For African Americans > 60 (> 60); eGFR For Non-African Americans > 60 (> 60)
[2021-10-25] MEDS ORDERED: *HR* LORazepam 0.5 MG TABLET PO PRN (12:45)
[2021-10-25] MEDS ORDERED: Ondansetron 4 MG/2 ML VIAL IVP PRN (13:46)
[2021-10-25] MEDS: Acetaminophen 325 MG TABLET PO PRN (13:54)
[2021-10-25] MEDS: Melatonin 3 MG TABLET PO PRN (20:26)
[2021-10-26 02:13] LABS: Basophils % 0.2 %; Eosinophils % 0.3 %; Hematocrit 40.7 % (35.3-44.9); Immature Granulocytes % 0.5 % (0-4); Lymphocytes # 0.9 K/mcL (0.6-4.6); Lymphocytes % 9.3 %; Mean Corpuscular HGB Conc 33.7 g/dL (31.6-35.5); Mean Corpuscular Hemoglobin 31.6 pg (28.0-33.3); Mean Corpuscular Volume 93.8 fL (83.0-100.0); Mean Platelet Volume 10.8 fL (9.4-12.4); Monocytes % 10.4 %; Neutrophils # 7.9 K/mcL (1.6-8.9); Platelet Count 235 K/mcL (140-400); Red Blood Count 4.34 M/mcL (3.82-4.97); Red Cell Distribution Width 12.2 % (11.5-14.5); Segmented Neutrophils % 79.3 %
[2021-10-26 02:24] LABS: BUN/Creatinine Ratio 15 (6-26); Blood Urea Nitrogen 9 mg/dL (8-23); Calcium 8.4 mg/dL (8.6-10.3); Carbon Dioxide 23 mEq/L (23-29); Chloride 99 mEq/L (98-107); Glucose 113 mg/dL (70-105); Osmolality,Calculated 271 (280-300); Potassium 3.6 mEq/L (3.5-5.1); Sodium 131 mEq/L (136-145); eGFR For African Americans > 60 (> 60); eGFR For Non-African Americans > 60 (> 60)
[2021-10-26 02:28] LABS: Hemoglobin 13.7 g/dL (11.5-15.4)
[2021-10-26] MEDS: Ipratropium 1 PUFF INHALER IH SCH ×3 (03:45→15:27)
[2021-10-26] MEDS: *HR* Enoxaparin 40 MG/0.4 ML SYRINGE SQ SCH (06:04)
[2021-10-26] MEDS: Chlorhexidine Rinse 15 ML MOUTHWASH MM SCH (09:06)
[2021-10-26] MEDS: Cholecalciferol (D-3) 1,000 UNIT (25MCG) TABLET PO SCH ×2 (09:07→09:08)
[2021-10-26] MEDS: Cyanocobalamin (B-12) 1,000 MCG TABLET PO SCH (09:07)
[2021-10-26] MEDS: Aspirin 81 MG TAB.CHEW PO SCH (09:07)
[2021-10-26] MEDS: Multivit/Ca/Min/Fe/FA 1 TAB TABLET PO SCH (09:07)
[2021-10-26] MEDS: cefTRIAXone 1,000 MG in 0.9 % Sodium Chloride Mini Bag 100 ML IVPB SCH (09:07)
[2021-10-26] MEDS: Artificial Tears SOLN 15 ML BOTTLE BOTH EYES SCH (09:07)
[2021-10-26 11:40] VITALS: BP 126/91; PULSE 98; TEMP 97.7; O2SAT 90
== END 2021-10-26 15:35 | disposition home or self-care (01) | DRG 871 ==
LOC: SUATTDRO → EMEROOARM 17:21 → 3BNU 17:21 → SUATTDRO 21:57 → 3BNU 22:42
PROVIDERS: ADMIT Internal Medicine; ATTEND Internal Medicine